=== PATIENT | male | born 1945 | race Asian ===

== ENCOUNTER → 2018-10-09 | Outpatient (CLI) | payer OTHER, MEDICARE ==
[2018-10-09 13:26] LABS: BASOPHIL % 0.4 % (0-2); PLATELET COUNT 193 x10^3mcL (130-400)
[2018-10-09 13:33] LABS: RED CELL DISTRIBUTION WIDTH 15.1 % (11.5-14.5)
[2018-10-09 13:48] LABS: ALBUMIN 3.7 g/dL (3.4-5.0); ALKALINE PHOSPHATASE 43 U/L (46-116); ALT/SGPT 23 U/L (16-63); AST/SGOT 28 U/L (15-37); BILIRUBIN TOTAL 0.5 mg/dL (0.20-1.00); CALCIUM 9.3 mg/dL (8.5-10.1); CARBON DIOXIDE 30.5 mmol/L (21-32); CHLORIDE SERUM 104 mmol/L (98-107); CREATININE SERUM 1.6 mg/dL (0.7-1.3); GLUCOSE SERUM 99 mg/dL (74-106); PHOSPHOROUS 4.3 mg/dL (2.5-4.9); POTASSIUM SERUM 4.4 mmol/L (3.5-5.1); SODIUM SERUM 141 mmol/L (136-145); TOTAL PROTEIN, SERUM 7.6 g/dL (6.4-8.2)
[2018-10-09 14:12] LABS: CREATININE UR 35.7 mg/dL
[2018-10-09 14:15] LABS: microscopic required? YES; urine erythrocyte 2+ (NEGATIVE)
[2018-10-09 15:11] LABS: UA SPECIFIC GRAVITY 1.015 (1.005-1.035)
== END | disposition home or self-care (01) ==
LOC: LB 12:31
DX: R80.9 Proteinuria, unspecified (principal); N25.0 Renal osteodystrophy; N18.3 Chronic kidney disease, stage 3 (moderate); I10 Essential (primary) hypertension